=== PATIENT | female | born 1990 | race Caucasian/White ===

== ENCOUNTER → 2025-02-06 | Outpatient (CLI) | payer OTHER ==
[~2025-02-06] MED LIST: AMLO1TAB25 PO; CHLO125TA PO; CLAR10CA3 PO; CYAN1000VL IM; FOLI1TAB11 PO; HYDR-161 PO; HYDR5TAB PO; IRON65TA2 PO; MEDR150I13 IM; METF500T13 PO; METO1TAB32 PO; METO50TA7 PO; NOXI1TAB PO; OLME40TA PO; OMEP-173 PO; PHEN30CA21 PO; ROSU5TAB49 PO; TIRZ10PE; TIRZ12.5 SQ; TIRZ5PEN; VITA500C24 PO
[2025-02-06] MEDS: LIDOCAINE 1% MDV 20 ML VIAL SC SCH (08:15)
[2025-02-06 08:17] VITALS: TEMP 99.1
[2025-02-06 08:39] LABS: BASO # 0.1 10^3/uL (0.0-0.2); BASO % 0.6 % (0.0-1.0); EOS # 0.2 10^3/uL (0.0-0.5); EOS % 1.9 % (0.0-3.0); LYMPH # 2.5 10^3/uL (1.5-5.0); LYMPH % 23.7 % (24.0-44.0); MONO # 0.6 10^3/uL (0.0-0.8); MONO % 5.4 % (2.0-8.0); NEUTROPHILS # 7.2 10^3/uL (1.5-8.5); NEUTROPHILS % 68.0 % (36.0-66.0); PLATELET COUNT, AUTOMATED 499 10^3/uL (150-450)
[2025-02-06 09:40] VITALS: BP 165/73; O2SAT 99
== END ==
LOC: M IRPRO 08:05
PROVIDERS: ATTEND Internal Medicine Medical Oncology
DX: D64.9 Anemia, unspecified (principal)